=== PATIENT | female | born 1935 | race Caucasian/White ===

== ENCOUNTER → 2016-07-26 | Outpatient (CLI) | payer MEDICARE, BC ==
[~2016-07-26] MED LIST: AL-MAG HYDROX-S30 M1 PO; ALENDRONATE SOD70 M1 PO; AMBIEN10 MG PO; APRESOLINE10 MG PO; ASPIRIN EC81 M1 PO; ASPIRIN81 M1 PO; ASPIRIN81 M2 PO; ATENOLOL PO; AZOR 10/40 MG T1 TAB PO; BENICAR20 MG PO; BYSTOLIC10 MG PO; BYSTOLIC5 MG PO; CALCIUM500 MG PO; CALTRATE 600+D PO; CALTRATE PLUS T1 TA1 PO; CLONIDINE HCL0.1 MG PO; COLACE PO; DARVOCET-N 1001 TA1 DOB; EXFORGE 10-3201 TAB PO; EXFORGE 5-320 M1 TAB PO; FAST RELIEF LAX10 MG RC; FOSAMAX; FOSAMAX70 MG PO; HCTZ PO; HYDRALAZINE HCL50 MG PO; HYDROCHLOROTH12.5 M1 PO; KEFLEX PO; LORCET HD 10-31 EACH PO; LORTAB 7.51 TAB DOB; LOW DOSE ASPIRI81 M1; MEDROL PO; MULTI-DAY1 TAB PO; NORVASC PO; SIMVASTATIN20 MG PO; STOOL SOFTENER1 EAC1 PO; TENORMIN50 MG PO; VICODIN 5/1 TAB 5/50 PO; VITAMIN D50000 UNIT PO; ZOCOR20 MG PO; ZOLPIDEM TARTRAT5 MG PO
--- NOTE | ~2016-07-26 | BD1 ---
[facility] A Service of [facility] RADIOLOGY TEXT RESULTS PATIENT: KAREN FLOYD LOCATION: [facility] : 39 UNIT #: [id number] AGE: [address]: Asad Kohli APRN SEX: F ORDER DR: [id number] [facility] [address] [place], [place] [address] [id number] O MR#: [id number] Acc #: [id number] NAME: KAREN FLOYD : 1935 SEX: F STUDY DATE/TIME: 07/26/2016 12:37 UNIT: [facility] ROOM: STUDY DESCRIPTION: BD Dexa Bone Dens 1+ Site Attending Physician: Asad Kohli A.P.R.N. Referring Physician: Asad Kohli A.P.R.N. Ordering Physician: Asad Kohli A.P.R.N. Primary Care Physician: Asad Kohli A.P.R.N. MEDICAL IMAGING REPORT This report is preliminary unless electronic signature is present EXAM DXA scan. DATE 07/26/2016 HISTORY 81-year-old female for osteoporosis screening. Calcium supplementation. COMPARISON The patient's previous DXA scan from 03/30/2009 performed at [facility] could not be utilized for trending purposes due to differences in technology between the 2 facilities over the past 7 years. FINDINGS L1, L3, and L4 bone mineral density was obtained. The L2 vertebral body cannot be utilized for sampling due to the presence of vertebroplasty, which appears new since the 2009 examination. The included lumbar spine total bone mineral density is 1.001 g/cm2 with T-score -0.5 and Z-score 2.2, within normal limits. The left femoral neck bone mineral density is 0.785 g/cm2 with T-score -0.6 and Z-score of 1.7, within normal limits. IMPRESSION 1. Evaluation of the lumbar spine is limited. The L2 vertebral body could not be sampled due to the presence of vertebroplasty change. The sampled segments of the lumbar spine demonstrate normal bone mineral density. 2. Normal bone mineral density within the left femoral neck. 3. Trending could not be performed in comparison to the 2009 study due to differences in technology. [facility] A Service of [facility] RADIOLOGY TEXT RESULTS PATIENT: KAREN FLOYD LOCATION: [facility] : 39 UNIT #: [id number] AGE: [address]: Asad Kohli APRN SEX: F ORDER DR: Dictated by... Jaqueline Butler M.D. THIS IS AN ELECTRONICALLY VERIFIED REPORT Jaqueline Butler M.D. at 07/28/2016 7:14 AM THANIA/myesha TD: 07/26/2016 15:25 JOB #: [id number] MEDICAL IMAGING REPORT Page 1 of 1 COPY
== END | disposition home or self-care (01) ==
LOC: CWCC 12:13
DX: Z13.820 Encounter for screening for osteoporosis (principal)
CPT/HCPCS: 77080